=== PATIENT | female | born 1950 | race Caucasian/White ===

== ENCOUNTER 2020-08-28 10:07 | Inpatient (IN) | payer MEDICARE, MEDICAID, SELFPAY ==
[2020-08-28] VITALS (10 sets, daily range): BP systolic 156–177; BP diastolic 51–91; PULSE 68–78; RESP 18–20; TEMP 36.6–37.1; O2SAT 96–98; BMI 38.0
--- NOTE | ~2020-08-28 | CT_ITS ---
EXAMINATION: CT brain wo con DATE: 08/28/2020 10:23 INDICATION: Acute onset slurred speech and confusion. TECHNIQUE: Computed tomography (CT) of the head was performed without intravenous contrast. Sagittal and coronal reconstructions were performed. The mA was adjusted according to patient size. Iterative reconstruction technique was employed. The dose-length product was 605.33 mGy-cm. COMPARISON: None FINDINGS: No acute intracranial hemorrhage, acute infarction or abnormal extra axial fluid collection. A few sm all old lacunar infarcts at the bilateral lentiform nuclei and possibly at the left thalamus. There i s mild scattered white matter hypoattenuation consistent with chronic small vessel ischemic disease. Ventricles are normal and symmetric. No mass/mass effect. Intracranial calcified cerebral atheroscler osis is noted. The orbits, paranasal sinuses and mastoid air cells are normal. IMPRESSION: 1. No acute intracranial process. Dr. Del Rosario discussed these findings with Dr. Webb at 10:24 AM. 2. A few small old lacunar infarcts at the bilateral lentiform nuclei and possibly at the left thalam us. 3. Mild scattered white matter hypoattenuation consistent with chronic small vessel ischemic disease. Reviewed, dictated and finalized at location A. IMPRESSION: 1. No acute intracranial process. Dr. Del Rosario discussed these findings with Dr Camilla Webb at 10:24 AM. 2. A few small old lacunar infarcts at the bilateral lentiform nuclei and possi sherri at the left thalamus. 3. Mild scattered white matter hypoattenuation consistent with chronic small ve ssel ischemic disease.
--- NOTE | ~2020-08-28 | US_ITS ---
EXAMINATION: US carotid duplex BI EXAM DATE: 08/28/2020 15:17 INDICATION: Transient ischemic attack, slurred speech. Temperature awareness. TECHNIQUE: Grayscale, color and pulsed Doppler images of the cervical carotid arteries were obtained . The degree of vessel stenosis is placed in one of the following categories: normal, <50% stenosis, 50-69% stenosis, >=70% stenosis but less than near-occlusion, near-occlusion, or occlusion. Note that percent stenosis relative to normal distal artery lumen diameter is indirectly measured from velocit y measurements as described by Jacobo, et al. Radiology 2003; 229:340-346. There is no prior study fo r comparison. FINDINGS: RIGHT SIDE: Right common carotid artery peak systolic velocity (PSV in cm/s): 88 Right bulb/internal carotid artery peak systolic velocity (PSV in cm/s): 70 Right internal carotid artery end diastolic velocity (EDV in cm/s): 14 Right ICA/CCA peak systolic ratio: 0.8 Right external carotid artery peak systolic velocity (PSV in cm/s): 85 Right vertebral artery antegrade flow: yes There is no focal plaque identified. LEFT SIDE: Left common carotid artery peak systolic velocity (PSV in cm/s): 105 Left bulb/internal carotid artery peak systolic velocity (PSV in cm/s): 82 Left internal carotid artery end diastolic velocity (EDV in cm/s): 13 Left ICA/CCA peak systolic ratio: 0.8 Left external carotid artery peak systolic velocity (PSV in cm/s): 158 Left vertebral artery antegrade flow: yes There is mild carotid bulb plaque. Velocity and Doppler waveforms in the common and internal carotid arteries is normal. IMPRESSION: 1. Normal right internal carotid artery. 2. Less than 50 percent stenosis in the left internal carotid artery. Reviewed, dictated and finalized at location B.
--- NOTE | ~2020-08-28 | MR_ITS ---
EXAMINATION: MR brain IAC wo con DATE: 08/30/2020 10:49 INDICATION: Transient ischemic attack. Syncope. TECHNIQUE: Magnetic resonance imaging (MRI) of the brain, brainstem, and internal auditory canals was performed without intravenous contrast. Sequences included sagittal and axial T1-weighted FSE, axial diffusion-weighted FS EPI, axial T2*-weighted GRE, axial T2-weighted FLAIR Propeller, and axial T2-w eighted Propeller. Apparent diffusion coefficient (ADC) maps were created. COMPARISON: None. FINDINGS: There is an empty sella. There are scattered areas of nonspecific increased T2-weighted s ignal intensity in the cerebral white matter, which is within normal limits for the patient's age. Th ere are prominent perivascular spaces in the basal ganglia. There is a an old lacunar infarct involvi ng the right basal ganglia and posterior limb right internal capsule. There is no intracranial hemorr tong, acute infarction, or abnormal intracranial mass lesion. The ventricles are normal in size. Ther e is mild mucosal thickening in the ethmoid and left maxillary sinuses. The orbits are normal. The ma stoid air cells are normal. IMPRESSION: 1. Old lacunar infarct involving the right basal ganglia and posterior limb right internal capsule. Reviewed, dictated and finalized at location A. IMPRESSION: 1. Old lacunar infarct involving the right basal ganglia and posterior limb rig ht internal capsule.
--- NOTE | ~2020-08-28 | XR_ITS ---
XR chest 1V portable DATE: 08/28/2020 10:29 INDICATION: Slurred speech, confusion TECHNIQUE: Portable upright AP chest on 09/07/2020 1026 hours COMPARISON: None FINDINGS: Status post sternotomy/coronary artery bypass graft surgery. Normal heart size. No hilar or mediastinal enlargement. No pulmonary infiltrate or consolidation, pleural effusion or pulmonary mass congestion or pneumothor ax. IMPRESSION: Status post sternotomy/CABG No active cardiopulmonary disease Reviewed, dictated and finalized at location A.
--- NOTE | 2020-08-28 10:11 | ED.NEUROSD ---
HPI - Neuro Symptoms/Deficit General Chief Complaint: Weakness Stated Complaint: confused Source: patient Mode of arrival: ambulatory Limitations: no limitations History of Present Illness HPI Narrative: this is a 69-year-old female that presents to the emergency department after she was some signed in to visit her that is also admitted in the hospital with some episode of slurred speech no other neurological deficits were elicited, the slurred speech started approximately at 9 in the morning when she had signed in the director of front office to for visitation her . She was seen in our exam room and symptoms had resolved after involved 45 minutes currently there is no slurred speech no neurological deficits, patient continues to feel weak with no fever chills no chest pain or pressure no shortness of breath no abdominal pain. Patient has a past medical history of hypertension, diabetes, and history of coronary artery disease with CABG approximately 27 years ago. Patient also states that she has a remote history of stroke again approximately 2 decades prior. Onset (ago): hour(s) Time: 10:53 Last Observed Normal: 09:05 Timing confirmed by: other Location: speech History of same: Yes Severity: mild Quality: improving Relieving factors: none Exacerbating factors: none Context: gradual onset On Anticoagulants: No Associated symptoms: denies other symptoms Treatments Prior to Arrival: none Related Data Home Medications Medication Instructions Recorded Confirmed Unable to Obtain Home Medications 08/28/20 08/28/20 Allergies Allergy/AdvReac Type Severity Reaction Status Date / Time No Known Allergies Allergy Verified 08/28/20 10:58 Review of Systems Review of Systems: All systems reviewed & are unremarkable except as noted in HPI and below PMFSH Past Medical History Medical History CAD (coronary artery disease) Diabetes mellitus HTN (hypertension) Exam Const: General: no acute distress and alert Orientation/consciousness: patient oriented x3 Other: initially presents with slurred speech that started approximately 9:00 a.m., slurred speech has resolved within about 45 minutes. HENMT: Head: normal to inspection Eyes: Conjunctivae: conjunctivae normal Pupils: Equal, round and reactive pupils present EOM: EOMs intact bilaterally Neck: Neck: normal visual inspection, no lymphadenopathy and no meningeal signs Chest: Chest palpation & inspection: normal inspection of the chest Resp: Effort & Inspection: normal respiratory effort Auscultation: clear to auscultation bilaterally Cardio: Rate: regular rate Rhythm: regular rhythm GI: GI Palp: Yes Soft to palpation Auscultation: normal bowel sounds : General: Yes no CVA tenderness Urinary Catheter: Urinary Catheter: patent and draining Back/Spine/Pelvis: Back: no CVA tenderness Skin: General skin exam: normal color Rashes: no rashes Neuro: General: patient oriented x3 Speech: Abnormal speech present Other: speech Returned returned to normal after [id number] Psych: Appearance: grossly normal and well kempt Mental Status: mental status grossly normal Affect: normal affect Thought content: Yes Normal thought content present Course Course Emergency Course: patient presents with some slurred speech and about 45 minutes and speech has returned to her normal baseline although the patient is nonfocal does have some generalized weakness with no headache or blurry vision. Discharge Plan Discharge Clinical Impression: TIA (transient ischemic attack) HTN (hypertension) Qualifiers: Hypertension type: essential hypertension Qualified Code(s): I10 - Essential (primary) hypertension Diabetes mellitus Qualifiers: Diabetes mellitus type: type 2 Diabetes mellitus detention insulin use: without detention use Diabetes mellitus complication status: without complication Qualified Code(s): E
--- NOTE | 2020-08-28 10:13 | ECG_ITS ---
Measurements Intervals [place] Rate: 79 P: 31 MN: 209 QRS: -1 QRSD: 109 T: 21 QT: 379 QTc: 437 Interpretive Statements SINUS RHYTHM VOLTAGE CRITERIA FOR LVH BORDERLINE R WAVE PROGRESSION, ANTERIOR LEADS BASELINE WANDER- I, II, III BORDERLINE ECG Electronically Signed On 08-28-2020 12:27:16 CDT by Robles Arizmendi D.O.
[2020-08-28 10:22] LABS: Basophils Absolute Auto 0.04 K/mm3 (0.00-0.10); Basophils Percent Auto 0.5 % (0.0-1.0); Eosinophils Absolute Auto 0.26 K/mm3 (0.02-0.50); Hematocrit 42.9 % (35.0-42.0); Hemoglobin 13.8 g/dL (11.7-13.8); Immature Granulocyte Absolute 0.04 K/mm3 (0.00-0.00); Immature Granulocyte Percent A 0.5 % (0.0-0.0); Lymphocytes Absolute Auto 2.51 K/mm3 (1.10-4.50); Mean Corpuscular HGB Conc 32.2 g/dL (32.0-36.0); Mean Corpuscular Hemoglobin 26.6 pg (27.0-31.0); Mean Corpuscular Volume 82.7 fL (78.0-102.0); Mean Platelet Volume 10.7 fl (9.2-11.8); Monocytes Absolute Auto 0.52 K/mm3 (0.10-0.90); Neutrophils Absolute Auto 5.3 K/mm3 (1.7-7.2); Platelet Count Result 278 K/mm3 (150-420); Red Blood Count 5.19 M/mm3 (4.20-5.40); Red Cell Distribution Width 15.4 % (11.6-14.4); White Blood Count 8.7 K/mm3 (4.8-10.8)
[2020-08-28 10:28] LABS: INR 1.1; Partial Thromboplastin Time 26.8 SEC (22.3-31.6); Prothrombin Time 10.9 Seconds (9.64-11.0)
[2020-08-28 10:43] LABS: Alanine Aminotransferase 29 U/L (14-59); Albumin Level 3.1 g/dL (3.4-5.0); Alkaline Phosphatase 106 U/L (46-116); Anion Gap 11 mmol/L (8-16); Aspartate Amino Transferase 21 U/L (15-37); Bilirubin,Total 0.3 mg/dL (0.00-1.00); Blood Urea Nitrogen 13 mg/dL (7-18); Carbon Dioxide 24 mmol/L (21-32); Chloride 100 mmol/L (98-108); Estimated Glomerular Filt Rate > 60; Glucose 318 mg/dL (70-99); Osmolality Calculated 292 mOsm/kg (285-295); Sodium 135 mmol/L (136-145)
[2020-08-28 10:44] LABS: Troponin I < 0.02 ng/mL (0.00-0.056)
[2020-08-28 10:47] LABS: Thyroid Stimulating Hormone 12.71 uIU/mL (0.36-3.74)
--- NOTE | 2020-08-28 11:00 | PC.NURSE ---
1015 pt to xray per stretcher with this rn. 1025 speech clearing. able to say ifs ands or buts . could not say it upon arrival to er. pt states feeling better.
--- NOTE | 2020-08-28 11:08 | ECHO_ITS ---
Patient Info Name: Ludmila Dailey Age: 69 years : 1950 Gender: Female Ht: 68 in Wt: 246 lbs BSA: 2.36 m2 HR: 73 bpm BP: 156 / 86 mmHg Heart Rhythm: Sinus Rhythm Technical Quality: Fair Exam Date: 08/28/2020 11:54 AM Exam Location: [facility] Patient Status: Inpatient Admit Date: 08/28/2020 Staff Ordering Physician: Hammad Webb MD [employer] Compounder: Leanne Wesley RDCS Attending Provider: Hammad Webb MD Referring Physician: Jon DAVIS; Exam Type: CA echo dop color flow w con Study Info Indications R93.1 - Abnormal findings on diagnostic imaging of heart and coronary circulation I10 - Essential (primary) hypertension Complete two-dimensional, color flow and Doppler transthoracic echocardiogram is performed with contrast to opacify the left ventricle and to improve the deliniation of the left ventricle endocardial borders. Contrast/Agitated Saline Contrast/Ag. Saline: Definity Amount: 4.00 ml Existing IV Access: Yes IV Access Condition: patent with no signs of infiltration History/Risk Factors Diabetic Therapy: Insulin Diabetes Mellitus: Type II Family History: Coronary Artery Disease Deep Vein Thrombosis (DVT): None Frailty Scale (CSHA): 4: Vulnerable Summary 1. Left ventricular chamber dimension is normal. 2. Definity contrast administered improved wall motion interpretation. 3. Left ventricular systolic function is normal, estimated at 60-65%. 4. There is moderately increased left ventricular wall thickness. 5. The left ventricular diastolic function is grade I diastolic dysfunction. 6. E/e' 10 is mildly elevated. 7. Right ventricular systolic function is reduced based on a TAPSE 1.2 cm. 8. Left atrial chamber dimension is moderately enlarged. 9. There is mild tricuspid valve regurgitation. 10. No pulmonary hypertension, estimated pulmonary arterial systolic pressure is 33 mmHg. 11. There is trace pulmonic regurgitation. Recommendations * Continue medical therapy for diabetes. Left Ventricle Definity contrast administered improved wall motion interpretation. E/e' 10 is mildly elevated. Left ventricular chamber dimension is normal. Left ventricular systolic function is normal, estimated at 60-65%. There is moderately increased left ventricular wall thickness. The left ventricular diastolic function is grade I diastolic dysfunction. Right Ventricle Right ventricular systolic function is reduced based on a TAPSE 1.2 cm. Right ventricular chamber dimension is not well visualized. Left Atria Left atrial chamber dimension is moderately enlarged. Right Atria Right atrial chamber dimension is not well visualized. Aortic Valve The aortic valve is trileaflet. There is no aortic valve stenosis. There is no aortic valve regurgitation. Pulmonic Valve There is trace pulmonic regurgitation. Mitral Valve There is no mitral valve stenosis. There is no mitral valve regurgitation. Tricuspid Valve There is mild tricuspid valve regurgitation. No pulmonary hypertension, estimated pulmonary arterial systolic pressure is 33 mmHg. Pericardium/Pleural There is no pericardial effusion. Inferior Vena Cava Normal inferior vena cava with >50% collapse upon inspiration consistent with normal right atrial pressure, 5 mmHg. Aorta The aortic root size at the sinus of Valsalva is normal. Left Ventricular Outflow Tract
[2020-08-28] MEDS: SODIUM CHLORIDE 0.9% IV 1,000 ML 125 ML IV CONT (11:10)
--- NOTE | 2020-08-28 11:15 | PC.NURSE ---
called for bed for admission. 1045. awaiting nurse to nurse report. Report to [facility].
[2020-08-28 11:21] LABS: Add Urine Microscopic? YES; Appearance Urine Clear (Clear); Bilirubin Urine Negative (Negative); Blood Urine 3+ (Negative); Color Urine Yellow (Yellow); Glucose Urine UA 3+ (Negative); Ketones Urine Negative (Negative); Leukocyte Esterase Ur Negative LEU/UL (Negative); Nitrate Urine Negative (Negative); Protein Urine Negative (Negative); Urobilinogen Urine 0.2 mg/dL (0.2-1.0); pH Urine 5.5 (5.0-8.0)
[2020-08-28 11:27] LABS: Bacteria Urine None seen /hpf; Transitional Epi Cells Urine Few /hpf; WBC Urine 0-3 /hpf (0-3)
--- NOTE | 2020-08-28 13:28 | PM.IMHP ---
H&P: HPI History of Present Illness Date/Time: 08/28/20 13:28 Chief complaint: confused Narrative: Ludmila Dailey is a 69 year old female that presented with aphasia. Patient has a past medical history of CAD, diabetes, hypertension history of CVA, history of TIAs,endometriosis cancer and CABG x6. Patient was here at the hospital visiting her who is a inpatient at our facility. Patient noted that she drove to the hospital and presented to our COVID-19 screening while at the wound she noted that she was having trouble speaking and became confused. Patient noted that she could not say what she wanted to her words would not come out. She did not proceeded to come upstairs and while she was coming upstairs she forgot why she came to the hospital she also noted that she had tingling to her right arm. While in the elevator and employee ask where was she going she was unable to express herself. At that time the employee walked her to the nursing station. I did witness her walking down the das she seemed to be explained left side related she was then put in a wheelchair and taken down to the ED. vital signs 98.7, 76, 97% on room air, blood pressure 169/91. Patient had CT did not indicate any acute infarcts, chest x-ray unremarkable, WBC 8.7 hemoglobin 13.8 hematocrit 42.9, platelet 278, sodium 135, potassium 4.0, but BUN 13, creatinine 0.73 glucose 318 troponin negative TSH 12.71, UA did indicate glucose with blood, EKG indicates sinus rhythm with a heart rate of 79. Patient is being admitted for TIA .the patient denies SOB, CP, palpitation, extremity numbness, lightheadedness, dizziness, constipation, diarrhea, chills, or fever. Patient also noted that she is not sure whether she took her medication for the last couple of days. Patient notes that her is in the hospital she has been concerned about him and is unable to remember whether or not she took her pills. Review of Systems Review of Systems: All systems reviewed & are unremarkable except as noted in HPI and below (10 point system review) [facility] Past Medical History Medical History CAD (coronary artery disease) Diabetes mellitus HTN (hypertension) Social History Social History Smoking status: Former smoker Smoking end date: 08/21/00 Alcohol intake: never Substance use: former Substance use type: does not use Gender identity (if verbalized by the patient): Female Sexual Orientation (if Verbalized by the Patient): Straight or Heterosexual Spiritual care concerns: No Meds Home Medications and Allergies Allergies Allergy/AdvReac Type Severity Reaction Status Date / Time aspirin [From Aggrenox] AdvReac Headache Verified 08/28/20 11:08 Beta-Blockers AdvReac Hypotension Verified 08/28/20 11:08 (Beta-Adrenergic Bloc dipyridamole [From Aggrenox] AdvReac Headache Verified 08/28/20 11:08 empagliflozin AdvReac Back Pain Verified 08/28/20 11:08 [From Jardiance] exenatide [From Byetta] AdvReac Vomiting Verified 08/28/20 11:08 liraglutide [From Victoza] AdvReac Unknown Verified 08/28/20 11:08 metoprolol [From Toprol XL] AdvReac Weakness Verified 08/28/20 11:08 nefazodone [From Serzone] AdvReac Unknown Verified 08/28/20 11:08 niacin AdvReac Headache Verified 08/28/20 11:08 [From Niaspan Extended-Release] paroxetine [From Paxil] AdvReac Headache Verified 08/28/20 11:08 sitagliptin [From Januvia] AdvReac Unknown Verified 08/28/20 11:08 Thiazides AdvReac Unknown Verified 08/28/20 11:08 Vital Signs Vital Signs - 24 hr 08/28/20 10:07 08/28/20 10:18 08/28/20 11:04 Temperature 98.7 F Pulse Rate 78 74 Respiratory Rate 20 Blood Pressure 156/86 H Pulse Oximetry 98 97 08/28/20 12:04 Temperature Pulse Rate 76 Respiratory Rate Blood Pressure 169/91 H Pulse Oximetry 97 Exam Narrative: Exam Narrative: FERMÍN
--- NOTE | 2020-08-29 02:38 | PC.NURSE ---
Patient sleeping, no apparent distress. monitor technician remains on. Call light and needed items within reach.
[2020-08-29 04:00] VITALS: BP 161/58; PULSE 70; RESP 18; TEMP 36.9; O2SAT 95
[2020-08-29 05:40] LABS: Basophils Absolute Auto 0.03 K/mm3 (0.00-0.10); Basophils Percent Auto 0.4 % (0.0-1.0); Eosinophils Absolute Auto 0.32 K/mm3 (0.02-0.50); Eosinophils Percent Auto 4.3 % (1.0-6.0); Hematocrit 42.7 % (35.0-42.0); Hemoglobin 13.8 g/dL (11.7-13.8); Immature Granulocyte Absolute 0.03 K/mm3 (0.00-0.00); Immature Granulocyte Percent A 0.4 % (0.0-0.0); Lymphocytes Absolute Auto 2.18 K/mm3 (1.10-4.50); Lymphocytes Percent Auto 29.5 % (18.0-42.0); Mean Corpuscular HGB Conc 32.3 g/dL (32.0-36.0); Mean Corpuscular Hemoglobin 26.6 pg (27.0-31.0); Mean Corpuscular Volume 82.4 fL (78.0-102.0); Mean Platelet Volume 10.9 fl (9.2-11.8); Monocytes Absolute Auto 0.43 K/mm3 (0.10-0.90); Monocytes Percent Auto 5.8 % (2.0-11.0); Neutrophils Absolute Auto 4.4 K/mm3 (1.7-7.2); Neutrophils Percent Auto 59.6 % (50.0-70.0); Platelet Count Result 270 K/mm3 (150-420); Red Blood Count 5.18 M/mm3 (4.20-5.40); Red Cell Distribution Width 15.2 % (11.6-14.4); White Blood Count 7.4 K/mm3 (4.8-10.8)
[2020-08-29 06:04] LABS: Alanine Aminotransferase 27 U/L (14-59); Alkaline Phosphatase 98 U/L (46-116); Anion Gap 9 mmol/L (8-16); Aspartate Amino Transferase 15 U/L (15-37); Bilirubin,Total 0.3 mg/dL (0.00-1.00); Blood Urea Nitrogen 13 mg/dL (7-18); Calcium 8.8 mg/dL (8.5-10.1); Carbon Dioxide 24 mmol/L (21-32); Chloride 101 mmol/L (98-108); Estimated CRCL calculation 84 ml/min; Estimated Glomerular Filt Rate > 60; Glucose 249 mg/dL (70-99); Magnesium 1.7 mg/dL (1.8-2.4); Osmolality Calculated 286 mOsm/kg (285-295); Potassium 3.8 mmol/L (3.5-5.1); Sodium 134 mmol/L (136-145); Thyroid Stimulating Hormone 19.94 uIU/mL (0.36-3.74); Total Protein 6.8 g/dL (6.4-8.2)
[2020-08-29 07:57] VITALS: BP 187/69; PULSE 64; RESP 18; TEMP 35.9; O2SAT 96
[2020-08-29] MEDS: MAGNESIUM SULF 2 GM/WATER 50ML 2 GM/50 ML BAG IVPB (09:07)
[2020-08-29] MEDS: ENOXAPARIN 40 MG/0.4 ML SYRINGE SUB-Q (09:09)
[2020-08-29] MEDS: CLOPIDOGREL BISULFATE 75 MG TABLET PO (09:10)
[2020-08-29] MEDS: PANTOPRAZOLE 40 MG TABLET PO (09:11)
[2020-08-29] MEDS: SIMVASTATIN 10 MG TABLET PO (09:11)
--- NOTE | 2020-08-29 09:28 | PC.NURSE ---
Magnesium infusing, denies needs, no complaints, up in room with walker, gait steady, remains alert and oriented
--- NOTE | 2020-08-29 11:29 | WPDPN ---
Progress Note: A&P Assessment and Plan (1) TIA (transient ischemic attack): Code(s): G45.9 - Transient cerebral ischemic attack, unspecified Status: Acute Assessment and Plan: Patient with a history of TIA and CVAs CT does not indicate any new infarcts Troponin negative EKG sinus rhythm Continue neurochecks every shift Continue telemetry Echo unremarkable MRI of the brain pending Continue Plavix Carotid Doppler-. Normal right internal carotid artery. Less than 50 percent stenosis in the left internal carotid artery. (2) CAD (coronary artery disease): Code(s): I25.10 - Atherosclerotic heart disease of [place] coronary artery without angina pectoris Status: Acute Assessment and Plan: Continues statins (3) Diabetes mellitus: Qualifiers: Diabetes mellitus complication status: without complication Diabetes mellitus prison insulin use: without long distance operator use Diabetes mellitus type: type 2 Qualified Code(s): E11.9 - Type 2 diabetes mellitus without complications Code(s): E11.9 - Type 2 diabetes mellitus without complications Status: Acute Assessment and Plan: Patient has not taken her home medication since Tuesday Continue sliding-scale with Accu-Cheks and hypoglycemic protocol Continue home it glipizide 4 mg daily and metformin thousand milligram tablet (4) HTN (hypertension): Qualifiers: Hypertension type: essential hypertension Qualified Code(s): I10 - Essential (primary) hypertension Code(s): I10 - Essential (primary) hypertension Status: Acute Assessment and Plan: Patient notes that she has not taken her medication since Tuesday Blood pressure elevated will restart her home medication and adjust as needed Vital signs as ordered Continue amlodipine 2.5 mg daily, metoprolol ER 25 mg daily Review of Systems Review of Systems: All systems reviewed & are unremarkable except as noted in HPI and below (10 point system review) Exam Narrative: Exam Narrative: GENERAL: This is a well-nourished, well-developed patient, in no apparent distress. HEAD: normocephalic, atraumatic. EYES: PERRL. Sclera clear/white. Vision is grossly intact. EARS: External ears normal, auditory canals clear and without drainage, TMs normal without perforation. Hearing grossly intact. NOSE: External nose normal with no obvious nasal discharge, nares without redness, no rhinorrhea. THROAT: Mucous membranes moist, posterior pharynx clear. NECK: Neck supple, non-tender without lymphadenopathy, masses or thyromegaly. CARDIOVASCULAR: Regular rate and rhythm without murmurs, gallops, or rubs. RESPIRATORY: Clear to auscultation. Breath sounds equal bilaterally. No wheezes, rales, or rhonchi. GASTROINTESTINAL: Abdomen soft, non-tender, nondistended. Bowel sounds are active. No hepato-splenomegaly, or palpable masses. No guarding. SKIN: warm, intact with no suspicious lesions or rash, good texture and turgor. NEURO: awake, alert, and oriented to person, place and time. There were no obvious focal neurologic abnormalities. EXTREMITIES: Normal range of motion. No edema. No calf tenderness. Negative Homans sign bilaterally. BACK: Nontender without deformity or crepitance. No flank tenderness. Objective Data Vital Signs Vital Signs: Vital Signs - 24 hr 08/28/20 12:04 08/28/20 14:00 08/28/20 14:43 Temperature 98 F Pulse Rate 76 76 74 Respiratory Rate 18 Blood Pressure 169/91 H 172/77 H Pulse Oximetry 97 98 08/28/20 15:33 08/28/20 17:44 08/28/20 19:29 Temperature 98.0 F Pulse Rate 72 68 77 Respiratory Rate 18 Blood Pressure 177/78 H Pulse Oximetry 96 08/28/20 23:58 08/29/20 04:00 08/29/20 07:57 Temperature 98.6 F 98.4 F 96.7 F L Pulse Rate 68 70 64 Respiratory Rate 18 18 18 Blood Pressure 162/51 H 161/58 H 187/69 H Pulse Oximetry 96 95 96 Intake/Output Intake/Output: Intake & Output 08/26/20 08/27/20
[2020-08-29 11:31] LABS: Glucose Point of Care 251 (65-105)
[2020-08-29 11:51] VITALS: BP 150/69; PULSE 69; RESP 18; TEMP 36.6; O2SAT 95
[2020-08-29] MEDS: metFORMIN HCL XR 500 MG TAB.SR.24H PO (12:24)
[2020-08-29 12:25] VITALS: PULSE 69
[2020-08-29] MEDS: METOPROLOL SUCCINATE EXT REL 25 MG TABCR PO (12:25)
[2020-08-29] MEDS: LEVOTHYROXINE SODIUM 100 MCG TABLET 200 MCG PO (12:26)
[2020-08-29] MEDS: amLODIPine BESYLATE 5 MG TABLET 2.5 MG PO (12:27)
--- NOTE | 2020-08-29 13:58 | PC.NURSE ---
Sitting in chair, denies needs, no distress, no confusion noted
--- NOTE | 2020-08-29 14:30 | PM.EVENT ---
Event Note Event Note Event Note: I have examined the patient reviewed the chart. I discussed the patient's care with Cecilia Rvias A.P.N. agree with her assessment plan.
[2020-08-29 15:33] VITALS: BP 170/67; PULSE 65; RESP 18; TEMP 36.2; O2SAT 96
--- NOTE | 2020-08-29 15:53 | PC.NURSE ---
pt is up and in 206 with , pt has permission to be out of her room
[2020-08-29] MEDS: MEGESTROL ACETATE (*CHEMO) 40 MG TABLET 80 MG PO (16:40)
[2020-08-29 16:44] LABS: Glucose Point of Care 259 (65-105)
[2020-08-29 19:51] VITALS: BP 139/58; PULSE 69; RESP 18; TEMP 36.4; O2SAT 95
[2020-08-29 20:45] LABS: Glucose Point of Care 294 (65-105)
--- NOTE | 2020-08-29 21:58 | PC.NURSE ---
pt informed her is going to be transferred, pt acknowledges
[2020-08-30] VITALS: PULSE 72; RESP 20; TEMP 36.4; O2SAT 96
[2020-08-30 03:55] VITALS: BP 149/73; PULSE 76; RESP 20; TEMP 36.4; O2SAT 95
[2020-08-30 05:48] LABS: Hematocrit 43.3 % (35.0-42.0); Hemoglobin 13.6 g/dL (11.7-13.8); Mean Corpuscular HGB Conc 31.4 g/dL (32.0-36.0); Mean Corpuscular Hemoglobin 25.9 pg (27.0-31.0); Mean Corpuscular Volume 82.5 fL (78.0-102.0); Mean Platelet Volume 10.9 fl (9.2-11.8); Platelet Count Result 282 K/mm3 (150-420); Red Blood Count 5.25 M/mm3 (4.20-5.40); Red Cell Distribution Width 15.2 % (11.6-14.4); White Blood Count 8.5 K/mm3 (4.8-10.8)
[2020-08-30 06:18] LABS: Alanine Aminotransferase 13 U/L (14-59); Albumin Level 2.9 g/dL (3.4-5.0); Alkaline Phosphatase 95 U/L (46-116); Anion Gap 10 mmol/L (8-16); Aspartate Amino Transferase 16 U/L (15-37); Bilirubin,Total 0.3 mg/dL (0.00-1.00); Blood Urea Nitrogen 13 mg/dL (7-18); Calcium 8.9 mg/dL (8.5-10.1); Carbon Dioxide 26 mmol/L (21-32); Chloride 102 mmol/L (98-108); Estimated CRCL calculation 82 ml/min; Estimated Glomerular Filt Rate > 60; Glucose 278 mg/dL (70-99); Magnesium 1.9 mg/dL (1.8-2.4); Osmolality Calculated 296 mOsm/kg (285-295); Sodium 138 mmol/L (136-145); Total Protein 6.6 g/dL (6.4-8.2)
[2020-08-30 07:30] LABS: Glucose Point of Care 280 (65-105)
[2020-08-30 08:00] VITALS: BP 135/88; PULSE 69; RESP 18; TEMP 36.6; O2SAT 95
[2020-08-30] MEDS: GLIMEPIRIDE 2 MG TABLET 4 MG PO (08:04)
[2020-08-30] MEDS: LEVOTHYROXINE SODIUM 100 MCG TABLET 200 MCG PO (08:47)
[2020-08-30] MEDS: MEGESTROL ACETATE (*CHEMO) 40 MG TABLET 80 MG PO (08:49)
[2020-08-30] MEDS: SERTRALINE HCL 50 MG TABLET 200 MG PO (08:49)
[2020-08-30] MEDS: PANTOPRAZOLE 40 MG TABLET PO (08:51)
[2020-08-30] MEDS: amLODIPine BESYLATE 5 MG TABLET 2.5 MG PO (08:51)
[2020-08-30] MEDS: SIMVASTATIN 10 MG TABLET PO (08:51)
[2020-08-30 08:52] VITALS: PULSE 69
[2020-08-30] MEDS: METOPROLOL SUCCINATE EXT REL 25 MG TABCR 12.5 MG PO (08:52)
[2020-08-30] MEDS: CLOPIDOGREL BISULFATE 75 MG TABLET PO (08:52)
--- NOTE | 2020-08-30 09:04 | P.DS_ITS ---
DS: Admitting Diagnosis Admitting Diagnosis Admitting Diagnosis: confused DS: Discharge Diagnosis Discharge Diagnosis (1) TIA (transient ischemic attack): Code(s): G45.9 - Transient cerebral ischemic attack, unspecified Status: Acute Assessment and Plan: * Patient with a history of TIA and CVAs * CT does not indicate any new infarcts * Troponin negative * EKG sinus rhythm * Continue neurochecks every shift * Continue telemetry * Echo unremarkable * MRI of the brain pending * Continue Plavix * Carotid Doppler-. Normal right internal carotid artery. Less than 50 percent stenosis in the left internal carotid artery. (2) CAD (coronary artery disease): Code(s): I25.10 - Atherosclerotic heart disease of [place] coronary artery without angina pectoris Status: Acute Assessment and Plan: * Continues statins (3) Diabetes mellitus: Qualifiers: Diabetes mellitus complication status: without complication Diabetes mellitus exterminator helper insulin use: without exterminator helper use Diabetes mellitus type: type 2 Qualified Code(s): E11.9 - Type 2 diabetes mellitus without complications Code(s): E11.9 - Type 2 diabetes mellitus without complications Status: Acute Assessment and Plan: * Patient has not taken her home medication since Tuesday * Continue sliding-scale with Accu-Cheks and hypoglycemic protocol * Continue home it glipizide 4 mg daily and metformin thousand milligram tablet (4) HTN (hypertension): Qualifiers: Hypertension type: essential hypertension Qualified Code(s): I10 - Essential (primary) hypertension Code(s): I10 - Essential (primary) hypertension Status: Acute Assessment and Plan: * Patient notes that she has not taken her medication since Tuesday * Blood pressure elevated will restart her home medication and adjust as needed * Vital signs as ordered * Continue amlodipine 2.5 mg daily, metoprolol ER 25 mg daily DS: Summary Time Spent with Patient Time attestation: Total time spent providing and/or coordinating discharge services: Exam Narrative: Exam Narrative: GENERAL: This is a well-nourished, well-developed patient, in no apparent distress. HEAD: normocephalic, atraumatic. EYES: PERRL. Sclera clear/white. Vision is grossly intact. EARS: External ears normal, auditory canals clear and without drainage, TMs normal without perforation. Hearing grossly intact. NOSE: External nose normal with no obvious nasal discharge, nares without redness, no rhinorrhea. THROAT: Mucous membranes moist, posterior pharynx clear. NECK: Neck supple, non-tender without lymphadenopathy, masses or thyromegaly. CARDIOVASCULAR: Regular rate and rhythm without murmurs, gallops, or rubs. RESPIRATORY: Clear to auscultation. Breath sounds equal bilaterally. No wheezes, rales, or rhonchi. GASTROINTESTINAL: Abdomen soft, non-tender, nondistended. Bowel sounds are act sohail. No hepato-splenomegaly, or palpable masses. No guarding. SKIN: warm, intact with no suspicious lesions or rash, good texture and turgor. NEURO: awake, alert, and oriented to person, place and time. There were no obvious focal neurologic abnormalities. EXTREMITIES: Normal range of motion. No edema. No calf tenderness. Negative Homans sign bilaterally. BACK: Nontender without deformity or crepitance. No flank tenderness. DS: Data Data Completed and Pending Labs on day of discharge: Labs from last 24 hours 08/30/20 08/30/20 08/30/20 07:25 05:34 05:34 WBC 8.5 RBC 5.25
--- NOTE | 2020-08-30 09:04 | PM.DS ---
DS: Admitting Diagnosis Admitting Diagnosis Admitting Diagnosis: confused DS: Discharge Diagnosis Discharge Diagnosis (1) TIA (transient ischemic attack): Code(s): G45.9 - Transient cerebral ischemic attack, unspecified Status: Acute Assessment and Plan: Patient with a history of TIA and CVAs CT does not indicate any new infarcts Troponin negative EKG sinus rhythm Continue neurochecks every shift Continue telemetry Echo unremarkable MRI of the brain pending Continue Plavix Carotid Doppler-. Normal right internal carotid artery. Less than 50 percent stenosis in the left internal carotid artery. (2) CAD (coronary artery disease): Code(s): I25.10 - Atherosclerotic heart disease of [place] coronary artery without angina pectoris Status: Acute Assessment and Plan: Continues statins (3) Diabetes mellitus: Qualifiers: Diabetes mellitus complication status: without complication Diabetes mellitus tour conductor insulin use: without half-way use Diabetes mellitus type: type 2 Qualified Code(s): E11.9 - Type 2 diabetes mellitus without complications Code(s): E11.9 - Type 2 diabetes mellitus without complications Status: Acute Assessment and Plan: Patient has not taken her home medication since Tuesday Continue sliding-scale with Accu-Cheks and hypoglycemic protocol Continue home it glipizide 4 mg daily and metformin thousand milligram tablet (4) HTN (hypertension): Qualifiers: Hypertension type: essential hypertension Qualified Code(s): I10 - Essential (primary) hypertension Code(s): I10 - Essential (primary) hypertension Status: Acute Assessment and Plan: Patient notes that she has not taken her medication since Tuesday Blood pressure elevated will restart her home medication and adjust as needed Vital signs as ordered Continue amlodipine 2.5 mg daily, metoprolol ER 25 mg daily DS: Summary Time Spent with Patient Time attestation: Total time spent providing and/or coordinating discharge services: Exam Narrative: Exam Narrative: GENERAL: This is a well-nourished, well-developed patient, in no apparent distress. HEAD: normocephalic, atraumatic. EYES: PERRL. Sclera clear/white. Vision is grossly intact. EARS: External ears normal, auditory canals clear and without drainage, TMs normal without perforation. Hearing grossly intact. NOSE: External nose normal with no obvious nasal discharge, nares without redness, no rhinorrhea. THROAT: Mucous membranes moist, posterior pharynx clear. NECK: Neck supple, non-tender without lymphadenopathy, masses or thyromegaly. CARDIOVASCULAR: Regular rate and rhythm without murmurs, gallops, or rubs. RESPIRATORY: Clear to auscultation. Breath sounds equal bilaterally. No wheezes, rales, or rhonchi. GASTROINTESTINAL: Abdomen soft, non-tender, nondistended. Bowel sounds are active. No hepato-splenomegaly, or palpable masses. No guarding. SKIN: warm, intact with no suspicious lesions or rash, good texture and turgor. NEURO: awake, alert, and oriented to person, place and time. There were no obvious focal neurologic abnormalities. EXTREMITIES: Normal range of motion. No edema. No calf tenderness. Negative Homans sign bilaterally. BACK: Nontender without deformity or crepitance. No flank tenderness. DS: Data Data Completed and Pending Labs on day of discharge: Labs from last 24 hours 08/30/20 08/30/20 08/30/20 07:25 05:34 05:34 WBC 8.5 RBC 5.25 Hgb 13.6 Hct 43.3 H MCV 82.5 MCH 25.9 L MCHC 31.4 L RDW 15.2 H Plt Count 282 MPV 10.9 Sodium 138 Potassium 4.0 Chloride 102 Carbon Dioxide 26 Anion Gap 10 BUN 13 Creatinine 0.74 Estim Creat Clear Calc 82 Estimated GFR > 60 Glucose 278 H POC Capillary Glucose 280 Calculated Osmolality 296 H Calcium 8.9 Magnesium 1.9 Total Bilirubin 0.3 AST 16 ALT
--- NOTE | 2020-08-30 09:41 | PC.NURSE ---
Awaiting MRI to be completed, denies needs, a/ox4 at this time
--- NOTE | 2020-08-30 10:14 | PC.NURSE ---
To MRI via wheel chair
--- NOTE | 2020-08-30 10:54 | PC.NURSE ---
Returned from MRI
[2020-08-30 11:32] LABS: Glucose Point of Care 250 (65-105)
--- NOTE | 2020-08-30 12:22 | PC.NURSE ---
Eating lunch, discharge orders reviewed with patient
--- NOTE | 2020-08-30 12:45 | PC.NURSE ---
Discharge via wheel chair to home, all personal items returned to patient, no new scripts to product picker, to follow up in a week with PMD, call for questions, packet given to patient, no questions upon dc
--- NOTE | 2020-09-03 12:54 | PC.NURSE ---
Discharge call back attempted without success due to phone number being invalid.
[2020-09-04 08:59] LABS: Glucose Point of Care 233 (65-105)
== END 2020-08-30 12:45 | disposition home or self-care (01) | DRG 69 ==
LOC: CHSED 11:10 → CHS2ND 12:04
PROVIDERS: Nurse Practitioner; Admitting Provider Emergency Medicine; Emergency Provider Emergency Medicine; Visit Provider Emergency Medicine
DX: G45.9 Transient cerebral ischemic attack, unspecified (principal); I10 Essential (primary) hypertension; E11.9 Type 2 diabetes mellitus without complications; I25.10 Atherosclerotic heart disease of native coronary artery without angina pectoris; Z95.1 Presence of aortocoronary bypass graft; Z86.73 Personal history of transient ischemic attack (TIA), and cerebral infarction without residual deficits; I36.1 Nonrheumatic tricuspid (valve) insufficiency; Z23 Encounter for immunization
CPT/HCPCS: 36415; 70450; 70551; 71045; 80053; 81001; 82948; 83735; 84443; 84484; 85025; 85027; 85610; 85730; 90471; 90653; 93005; 93880; 99284; 99285; A9270; C8929; G0008; J1650; J1815; J3475; J7030